=== PATIENT | female | born 2000 | race Caucasian/White ===

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

== ENCOUNTER 2020-11-30 19:17 | Emergency (ER) | payer OTHER ==
[~2020-11-30] VITALS: Ht 157.5 cm; Wt 95.6 kg
--- NOTE | 2020-11-30 19:19 | PHYS DOC ---
Past History Past Medical History: Hypothyroid, Other Past Surgical History: No Surgical History Alcohol Use: None Drug Use: None General Adult HPI: HPI: Have been sick since Friday... Nausea, vomiting some diarrhea vomiting about 6 times a day and diarrhea 2-3 times a day... Had been on a clear fluid diet and I seem to get better today but then ate tacos''''... and everything started back up again" Patient is a 20 year old female who presents with above hx and complaints nausea, vomiting, diarrhea and abdomen pain. Patient denies any specific history of bad food. No recent travel. No specific ill contacts. Is sexually active with no control. Patient has had 4 lifetime sexual partners. No history of trauma. Patient has never been . No history of ovarian cyst or endometriosis. Patient is normally healthy. Pt. follows with [facility]. Review of Systems: Review of Systems: Constitutional: Denies fever or chills Eyes: Denies change in visual acuity HENT: History of nasal congestion Respiratory: Denies cough or shortness of breath Cardiovascular: Denies chest pain or edema GI: Complains of abdominal pain, nausea, vomiting, and diarrhea : Denies dysuria Musculoskeletal: Denies back pain or joint pain Integument: Denies rash Neurologic: Denies headache, focal weakness or sensory changes Endocrine: Denies polyuria or polydipsia Lymphatic: Denies swollen glands Psychiatric: Denies depression or anxiety Family History: Family History: Noncontributory to presentation Current Medications: Current Meds: See nursing for home meds Allergies: Allergies: Allergies Coded Allergies Type Severity Reaction Last Updated Verified gluten Allergy Unknown 01/21/19 Yes Physical Exam: PE: Constitutional: Well developed, well nourished, no acute distress, non-toxic appearance. [] HENT: Normocephalic, atraumatic, bilateral external ears normal, oropharynx moist, no oral exudates, nose normal. [] Eyes: PERRLA, EOMI, conjunctiva normal, no discharge. [] Neck: Normal range of motion, no tenderness, supple, no stridor. [] Cardiovascular:Heart rate regular rhythm, no murmur [] Lungs & Thorax: Bilateral breath sounds clear to auscultation [] Abdomen: Bowel sounds hyperactive, soft, mild generalized tenderness, no masses, no pulsatile masses. [] No focal areas of rebound Skin: Warm, dry, no erythema, no rash. [] Back: No tenderness, no CVA tenderness. [] Extremities: No tenderness, no cyanosis, no clubbing, ROM intact, no edema. [] Neurologic: Alert and oriented X 3, normal motor function, normal sensory function, no focal deficits noted. [] No psoas sign. Psychologic: Affect anxious , judgement normal, mood normal. [] EKG: EKG: [] Radiology/Procedures: Radiology/Procedures: [][address] [id number] IMAGING REPORT Signed PATIENT: HARJIT GONZALEZ ACCOUNT: [id number] : 2000 LOCATION: ER AGE: 20 SEX: F EXAM STATUS: REG ER ORD. PHYSICIAN: MAGO MÁRQUEZ MD REASON: NAUSEA, VOMITING PROCEDURE: ACUTE ABDOMEN SERIES Exam: Acute abdominal series INDICATION: Nausea vomiting TECHNIQUE: Frontal view of the chest with upright and supine views of the abdomen Comparisons: None FINDINGS: The cardiomediastinal silhouette and pulmonary vessels are within normal limits. The lung and pleural spaces are clear. Air and stool are noted throughout the colon to level the rectum in a nonobstructive bowel gas pattern. No suspicious masses or calcifications. No free air. Visualized osseous structures are unremarkable. IMPRESSION: 1. No acute cardiopulmonary process. 2. Nonobstructive bowel gas pattern. Electronically signed by: Tracy Nguyen MD (11/30/2020 8:38 PM) [facility] DICTATED AND SIGNED BY: TRACY NGUYEN MD DATE: 11/30/202034 CC: MAGO MÁRQUEZ MD; MIRA BLANKENSHIP ~MTH0 Heart Score: C/O Chest Pain: N/A Risk Factors: Risk Factors: DM, Current or recent (<one month) smoker, HTN, HLP, family history of CAD, obesity. Risk Scores: Score 0 - 3: 2.5% MACE over next 6 weeks - Discharge Home Score 4 - 6: 20.3% MACE over next 6 weeks - Admit for Clinical Observation Score 7 - 10: 72.7% MACE over next 6 weeks - Early Invasive Strategies Course & Med Decision Making: Course & Med Decision Making Pertinent Labs and Imaging studies reviewed. (See chart for details Remain on a clear fluid diet only. X48 hours. No solids no milk products clear fluids only must allow bowel rest take Tylenol and ibuprofen for pain. May take Zofran 8 mg up to 4 times a day for nausea and vomiting for marked pain may take Percocet. Follow-up primary care. Return if any concerns. 1. Acute gastroenteritis 2. Viral Syndrome [] Dragon Disclaimer: Dragon Disclaimer: This electronic medical record was generated, in whole or in part, using a voice recognition dictation system. Departure Departure: Referrals: MIRA BLANKENSHIP (PCP) Scripts Ondansetron Hcl (ZOFRAN) 4 Mg Tablet 1 TAB PO PRN Q6-8HRS for nv, #30 TAB Prov: MAGO MÁRQUEZ MD 11/30/20 Oxycodone Hcl/Acetaminophen (PERCOCET 5-325 MG TABLET ) 1 Each Tablet 1 TAB PO PRN Q6HRS PRN for PAIN, #30 TAB Prov: MAGO MÁRQUEZ MD 11/30/20 Dragon Disclaimer This chart was dictated in whole or in part using Voice Recognition software in a busy, high-work load, and often noisy Emergency Department environment. It may contain unintended and wholly unrecognized errors or omissions. MAGO MÁRQUEZ MD Nov 30, 2020 19:19
[2020-11-30] MEDS ORDERED: OXYC1TAB15 PO (19:27)
[2020-11-30] MEDS ORDERED: ONDA4TAB7 PO (19:39)
[2020-11-30] MEDS ORDERED: ONDANSETRON PF 4 MG/2 ML VIAL. IVP ONE (20:15)
[2020-11-30] MEDS ORDERED: FAMOTIDINE 20 MG/2 ML VIAL IVP ONE (20:15)
[2020-11-30] MEDS ORDERED: IV RINGERS SOLUTION,LACTATED 1,000 ML IV SCH (20:15)
[2020-11-30] MEDS ORDERED: KETOROLAC 30 MG/ML VIAL. IVP ONE (20:15)
[2020-11-30 20:31] LABS: BACTERIA,URINE FEW /HPF (0-FEW); BILIRUBIN,URINE NEG (NEG); CLARITY,URINE HAZY; COLOR,URINE YELLOW; GLUCOSE,URINE NEG (NEG); NITRITE,URINE NEG (NEG); RBC,URINE 0 /HPF (0-2); SQUAMOUS EPITHELIAL CELL,UR MANY /LPF; WBC,URINE OCC /HPF (0-4)
--- NOTE | 2020-11-30 20:40 | RAD ---
Exam: Acute abdominal series INDICATION: Nausea vomiting TECHNIQUE: Frontal view of the chest with upright and supine views of the abdomen Comparisons: None FINDINGS: The cardiomediastinal silhouette and pulmonary vessels are within normal limits. The lung and pleural spaces are clear. Air and stool are noted throughout the colon to level the rectum in a nonobstructive bowel gas patter n. No suspicious masses or calcifications. No free air. Visualized osseous structures are unremarkable. IMPRESSION: 1. No acute cardiopulmonary process. 2. Nonobstructive bowel gas pattern. Electronically signed by: Tracy Fang MD (11/30/2020 8:38 PM) [facility]
[2020-11-30 20:41] VITALS: BP 122/80
[2020-11-30 20:42] LABS: BASO # 0.1 x10^3/uL (0.0-0.2); BASO % 1 % (0-3); EOS # 0.2 x10^3/uL (0.0-0.7); EOS % 2 % (0-3); HEMATOCRIT 42.6 % (36.0-47.0); HEMOGLOBIN 14.3 g/dL (12.0-15.5); LYMPH # 1.9 x10^3/uL (1.0-4.8); LYMPH % 23 % (24-48); MEAN CORPUSCULAR HEMOGLOBIN 29 pg (25-35); MEAN CORPUSCULAR HGB CONC 34 g/dL (31-37); MEAN CORPUSCULAR VOLUME 86 fL (79-100); MONO # 0.5 x10^3/uL (0.0-1.1); MONO % 6 % (0-9); NEUT # 5.6 x10^3uL (1.8-7.7); NEUT % 68 % (31-73); PLATELET COUNT 296 x10^3/uL (140-400); RED BLOOD COUNT 4.95 x10^6/uL (3.50-5.40); RED CELL DISTRIBUTION WIDTH 13.4 % (11.5-14.5); WHITE BLOOD COUNT 8.2 x10^3/uL (4.0-11.0)
[2020-11-30 20:44] LABS: CALCIUM 9.1 mg/dL (8.5-10.1); CREATININE 0.9 mg/dL (0.6-1.0); GFR 79.8; POTASSIUM 3.5 mmol/L (3.5-5.1)
[2020-11-30 20:50] LABS: ALBUMIN 4.1 g/dL (3.4-5.0); DIRECT BILIRUBIN 0.1 mg/dL (0.0-0.2); TOTAL BILIRUBIN 0.4 mg/dL (0.2-1.0); TOTAL PROTEIN 7.6 g/dL (6.4-8.2)
== END 2020-11-30 20:58 | disposition home or self-care (01) ==
LOC: ER 19:17
DX: K52.9 Noninfective gastroenteritis and colitis, unspecified (principal); B34.9 Viral infection, unspecified; E03.9 Hypothyroidism, unspecified; Z88.8 Allergy status to other drugs, medicaments and biological substances
CPT/HCPCS: 36415; 74022; 80048; 80076; 81001; 81025; 82150; 82550; 83690; 84484; 85025; 96374; 96375; 99284; J1885; J2405; J3490; J7120

== ENCOUNTER 2020-12-08 08:01 | Emergency (ER) | payer OTHER ==
[~2020-12-08] VITALS: Ht 154.9 cm; Wt 93.0 kg
[~2020-12-08 08:01] MED LIST: ONDA4TAB7 PO; OXYC1TAB15 PO
[2020-12-08] MEDS ORDERED: METOCLOPRAMIDE HCL 10 MG/2 ML VIAL. IVP ONE (08:30)
[2020-12-08] MEDS ORDERED: IOHEXOL 300 MG/ML 75 ML VIAL. IV ONE (08:30)
[2020-12-08] MEDS ORDERED: IV NORMAL SALINE 1,000ML 1,000 ML IV ONE (08:30)
--- NOTE | 2020-12-08 08:32 | PHYS DOC ---
Past History Past Medical History: Asthma, Hypothyroid Past Surgical History: No Surgical History Alcohol Use: None Drug Use: None General Adult EDM: Chief Complaint: NAUSEA/VOMITING/DIARRHEA HPI: HPI: Patient is a 20-year-old female coming in for vomiting with streaks of blood. Patient has been having symptoms for 13 days, has been seen twice already has been taking Zofran without improvement. Patient states she has vomited with every time she tries to eat or drink, is able to keep small amounts down. Denies any diarrhea. Last bowel movement was 5 days ago when she describes it as black and tarry. States she feels like her abdomen is a little bit distended. Has had darker and decreased urination. Denies any fevers, recent travel, undercooked foods, antibiotic use. Patient states she has a history of PCOS and celiac disease. Denies any coffee-ground emesis, states she has occasionally had a greenish color emesis but is usually yellow. Denies any NS AID use or chronic alcohol use. Denies any history of any gastric ulcers or gastritis. Review of Systems: Review of Systems: All other systems within normal limits except for as noted in the HPI Current Medications: Current Meds: Current Medications Medications (Trade) Dose Ordered Sig/[facility] Start Time Stop Time Status Last Admin Dose Admin Metoclopramide HCl (Reglan Vial) 10 mg 1X ONCE 12/08/20 08:30 12/08/20 08:31 UNV Sodium Chloride 1,000 ml @ 1,000 mls/hr 1X ONCE 12/08/20 08:30 12/08/20 09:29 UNV Allergies: Allergies: Allergies Coded Allergies Type Severity Reaction Last Updated Verified gluten Allergy Unknown 12/08/20 Yes Physical Exam: PE: Constitutional: Well developed, well nourished, no acute distress, non-toxic appearance. [] HENT: Normocephalic, atraumatic, bilateral external ears normal, nose normal. [] Eyes: PERRLA, conjunctiva normal, no discharge. [] Neck: No rigidity, supple, no stridor. [] Cardiovascular: Regular rate and rhythm, brisk cap refill [] Lungs & Thorax: Non labored symmetric respirations, no tachypnea or respiratory distress [] Abdomen: Soft, nondistended, no guarding or rebound. Tenderness and right upper quadrant and epigastric area, no McBurney's point tenderness, negative Whitehead's. Skin: Warm, dry, no erythema, no rash. [] Back: Unremarkable Extremities: No deformities, range of motion grossly intact, no lower extremity edema [] Neurologic: Alert and oriented X 3, no focal deficits noted. [] Psychologic: Affect normal, judgement normal, mood normal. [] Current Patient Data: Vital Signs: Vital Signs Date Time Temp Pulse Resp B/P (MAP) Pulse Ox O2 Delivery O2 Flow Rate FiO2 12/08/20 08:11 97.8 112 16 134/94 (107) 96 Room Air EKG: EKG: [] Radiology/Procedures: Radiology/Procedures: [] Heart Score: C/O Chest Pain: N/A Risk Factors: Risk Factors: DM, Current or recent (<one month) smoker, HTN, HLP, family history of CAD, obesity. Risk Scores: Score 0 - 3: 2.5% MACE over next 6 weeks - Discharge Home Score 4 - 6: 20.3% MACE over next 6 weeks - Admit for Clinical Observation Score 7 - 10: 72.7% MACE over next 6 weeks - Early Invasive Strategies Course & Med Decision Making: Course & Med Decision Making EXAM: CT CHEST, ABDOMEN, AND PELVIS WITH CONTRAST INDICATION: Chest pain, hematemesis COMPARISON: Abdominal radiograph 11/30/2020 TECHNIQUE: Helical CT of the chest abdomen, and pelvis performed after the administration of 75 mL Omnipaque 300 intravenous contrast. Sagittal and coronal reformats were obtained. One or more of the following individualized dose reduction techniques were utilized for this examination: 1. Automated exposure control 2. Adjustment of the mA and/or kV according to patient size 3. Use of iterative reconstruction technique. FINDINGS: CHEST: Thyroid gland and thoracic inlet: There is a 9 mm hypodense nodule in the left thyroid lobe. Thoracic inlet is normal. Heart/Systemic Vasculature: The heart is normal in size. No pericardial effusion. Thoracic aorta is normal. Pulmonary arteries are clear. Mediastinum and thee: No mediastinal or hilar lymphadenopathy. Lungs and pleura: The lungs are clear. No pleural effusion or pneumothorax. Neck/Axilla/Body Wall: No axillary lymphadenopathy. Bones: No acute osseous abnormality in the chest. ABDOMEN AND PELVIS: Liver: The liver is normal in size. There is a subcentimeter hypodensity in the right hepatic lobe, nonspecific. Focal fat along the falciform ligament. Gallbladder/Biliary Tree: Normal. Pancreas: Normal. Spleen: Normal. Adrenal Glands: Normal. Kidneys/Ureters/Bladder: Kidneys are normal in size and enhance symmetrically. No hydronephrosis. Ureters are normal. The bladder is decompressed. Reproductive Organs: Uterus is anteverted. There is a 1.4 cm follicular cyst in the left ovary. Stomach, small bowel, and colon: The stomach, small bowel, colon, and appendix are normal. Vasculature: Abdominal aorta is normal. Lymph Nodes: No lymphadenopathy. Peritoneum and retroperitoneum: No free fluid or free air. Bones: No acute osseous abnormality. IMPRESSION: 1. No acute abnormality in the chest, abdomen, or pelvis. 2. 9 mm left thyroid nodule. Recommend correlation with with thyroid ultrasound. Pertinent Labs and Imaging studies reviewed. (See chart for details) [] Dragon Disclaimer: Dragon Disclaimer: This electronic medical record was generated, in whole or in part, using a voice recognition dictation system. Departure Departure: Impression: Primary Impression: Nausea & vomiting Disposition: 01 HOME / SELF CARE / HOMELESS Condition: STABLE Referrals: VINAY ANGUIANO MD (PCP) Patient Instructions: Nausea and Vomiting Additional Instructions: Discontinue marijuana use. If symptoms recur may try taking a hot shower, taking any prescription antinausea medications, or using capsaicin cream on abdomen. Follow-up with your primary care provider for thyroid ultrasound follow-up. Scripts Metoclopramide Hcl (REGLAN) 10 Mg Tablet 1 TAB PO TID PRN for NAUSEA for 10 Days, #30 TAB 0 Refills before food and bedtime Prov: HARJIT SHARMA MD 12/08/20 Capsaicin (CAPSAICIN) 42.5 Gm Cream..g. 1 ANALI TP TID PRN for NAUSEA/VOMITING for 10 Days, #42.5 GM 0 Refills Prov: HARJIT SHARMA MD 12/08/20 HARJIT SHARMA MD Dec 08, 2020 08:32
[2020-12-08 08:47] LABS: BASO # 0.1 x10^3/uL (0.0-0.2); BASO % 1 % (0-3); EOS # 0.1 x10^3/uL (0.0-0.7); EOS % 1 % (0-3); HEMATOCRIT 44.2 % (36.0-47.0); HEMOGLOBIN 14.8 g/dL (12.0-15.5); LYMPH # 1.7 x10^3/uL (1.0-4.8); LYMPH % 22 % (24-48); MEAN CORPUSCULAR HEMOGLOBIN 29 pg (25-35); MEAN CORPUSCULAR HGB CONC 34 g/dL (31-37); MEAN CORPUSCULAR VOLUME 87 fL (79-100); MONO # 0.6 x10^3/uL (0.0-1.1); MONO % 8 % (0-9); NEUT # 5.3 x10^3uL (1.8-7.7); NEUT % 68 % (31-73); PLATELET COUNT 308 x10^3/uL (140-400); RED BLOOD COUNT 5.12 x10^6/uL (3.50-5.40); RED CELL DISTRIBUTION WIDTH 13.4 % (11.5-14.5); WHITE BLOOD COUNT 7.7 x10^3/uL (4.0-11.0)
[2020-12-08 08:53] LABS: CALCIUM 9.5 mg/dL (8.5-10.1); CREATININE 0.9 mg/dL (0.6-1.0); GFR 79.8; POTASSIUM 3.7 mmol/L (3.5-5.1)
[2020-12-08 09:00] LABS: ALBUMIN 4.4 g/dL (3.4-5.0); ALBUMIN/GLOBULIN RATIO 1.2 (1.0-1.7); TOTAL BILIRUBIN 0.9 mg/dL (0.2-1.0); TOTAL PROTEIN 8.1 g/dL (6.4-8.2)
[2020-12-08 09:17] LABS: CLARITY,URINE CLEAR; COLOR,URINE AMBER; GLUCOSE,URINE NEG (NEG)
[2020-12-08 09:18] LABS: BILIRUBIN,URINE MOD (NEG); NITRITE,URINE NEG (NEG)
[2020-12-08 09:20] LABS: BACTERIA,URINE FEW /HPF (0-FEW); SQUAMOUS EPITHELIAL CELL,UR OCC /LPF; WBC,URINE RARE /HPF (0-4)
--- NOTE | 2020-12-08 09:21 | RAD ---
EXAM: CT CHEST, ABDOMEN, AND PELVIS WITH CONTRAST INDICATION: Chest pain, hematemesis COMPARISON: Abdominal radiograph 11/30/2020 TECHNIQUE: Helical CT of the chest abdomen, and pelvis performed after the administration of 75 mL O mnipaque 300 intravenous contrast. Sagittal and coronal reformats were obtained. One or more of the f [facility] individualized dose reduction techniques were utilized for this examination: 1. Automated exposure control 2. Adjustment of the mA and/or kV according to patient size 3. Use of iterative reconstruction technique. FINDINGS: CHEST: Thyroid gland and thoracic inlet: There is a 9 mm hypodense nodule in the left thyroid lobe. Thoracic inlet is normal. Heart/Systemic Vasculature: The heart is normal in size. No pericardial effusion. Thoracic aorta is n ormal. Pulmonary arteries are clear. Mediastinum and thee: No mediastinal or hilar lymphadenopathy. Lungs and pleura: The lungs are clear. No pleural effusion or pneumothorax. Neck/Axilla/Body Wall: No axillary lymphadenopathy. Bones: No acute osseous abnormality in the chest. ABDOMEN AND PELVIS: Liver: The liver is normal in size. There is a subcentimeter hypodensity in the right hepatic lobe, n onspecific. Focal fat along the falciform ligament. Gallbladder/Biliary Tree: Normal. Pancreas: Normal. Spleen: Normal. Adrenal Glands: Normal. Kidneys/Ureters/Bladder: Kidneys are normal in size and enhance symmetrically. No hydronephrosis. Ure ters are normal. The bladder is decompressed. Reproductive Organs: Uterus is anteverted. There is a 1.4 cm follicular cyst in the left ovary. Stomach, small bowel, and colon: The stomach, small bowel, colon, and appendix are normal. Vasculature: Abdominal aorta is normal. Lymph Nodes: No lymphadenopathy. Peritoneum and retroperitoneum: No free fluid or free air. Bones: No acute osseous abnormality. IMPRESSION: 1. No acute abnormality in the chest, abdomen, or pelvis. 2. 9 mm left thyroid nodule. Recommend correlation with with thyroid ultrasound. Electronically signed by: Queenie Keenan MD (12/08/2020 9:18 AM) [id number]
[2020-12-08 09:22] LABS: BARBITURATES NEG (NEG); BENZODIAZEPINES NEG (NEG); CANNABINOIDS POS (NEG); COCAINE NEG (NEG); METHADONE NEG (NEG); OPIATES NEG (NEG); PHENCYCLIDINE NEG (NEG)
[2020-12-08 09:23] LABS: AMPHETAMINE/METHAMPHETAMINE NEG (NEG)
[2020-12-08] MEDS ORDERED: CAPS42.514 TP (09:36)
[2020-12-08] MEDS ORDERED: METO10TA81 PO (09:36)
[2020-12-08 09:58] VITALS: BP 115/57
== END 2020-12-08 10:01 | disposition home or self-care (01) ==
LOC: ER 08:01
DX: R11.2 Nausea with vomiting, unspecified (principal); R10.13 Epigastric pain; R10.11 Right upper quadrant pain; E03.9 Hypothyroidism, unspecified; J45.909 Unspecified asthma, uncomplicated; Z88.8 Allergy status to other drugs, medicaments and biological substances
CPT/HCPCS: 36415; 71260; 74177; 80053; 80307; 81001; 81025; 83690; 84484; 85025; 96361; 96374; 99285; J2765; J7030; Q9967